=== PATIENT | male | born 1950 | race Caucasian/White ===

== ENCOUNTER 2017-09-22 12:17 | Emergency (ER) | payer OTHER ==
[~2017-09-22] VITALS: Ht 170.2 cm; Wt 83.9 kg
[~2017-09-22 12:17] MED LIST: CARBIDOPA-LEVO1 EAC9 PO; LOW DOSE ASPIRI81 M1 PO; NORCO 5-325 TA1 EACH PO; REQUIP 1 MG TABL1 M1 PO; ZOFRAN 4 MG ORAL4 MG PO
[2017-09-22 14:14] VITALS: BP 121/70
[2017-09-22] MEDS ORDERED: KEFLEX500 M1 PO (14:14)
== END 2017-09-22 14:24 | disposition home or self-care (01) ==
LOC: ER 12:17
DX: S51.011A Laceration without foreign body of right elbow, initial encounter (principal); S80.211A Abrasion, right knee, initial encounter; Z88.0 Allergy status to penicillin; Z23 Encounter for immunization; V28.4XXA Motorcycle driver injured in noncollision transport accident in traffic accident, initial encounter; Y93.55 Activity, bike riding; Y92.89 Other specified places as the place of occurrence of the external cause; Y99.8 Other external cause status